=== PATIENT | female | born 1970 | race Caucasian/White ===

== ENCOUNTER 2016-10-21 17:18 | Emergency (ER) | payer BC ==
[2016-10-22 18:18] VITALS: Wt 74.8 kg
== END 2016-10-21 20:06 | disposition home or self-care (01) ==
LOC: D.ER 17:18
DX: Z20.3 Contact with and (suspected) exposure to rabies (principal); I10 Essential (primary) hypertension; K21.9 Gastro-esophageal reflux disease without esophagitis

== ENCOUNTER 2016-10-22 16:43 | Outpatient (CLI) | payer BC ==
[~2016-10-22] VITALS: Ht 162.6 cm; Wt 75.0 kg
[2016-10-22 18:18] VITALS: BP 153/92; Ht 162.6 cm; Wt 75.0 kg
== END 2016-10-22 19:00 | disposition home or self-care (01) ==
LOC: D.OPS 16:43
DX: Z23 Encounter for immunization (principal)

== ENCOUNTER 2016-10-24 13:21 | Outpatient (CLI) | payer BC ==
[2016-10-22 18:18] VITALS: BMI 28.4
== END 2016-10-24 13:56 | disposition home or self-care (01) ==
LOC: D.OPS 13:21 → D.MS 13:22 → D.OPS 13:56
DX: Z23 Encounter for immunization (principal)

== ENCOUNTER 2016-10-28 13:58 | Outpatient (CLI) | payer BC ==
[~2016-10-28] VITALS: Ht 162.6 cm; Wt 75.0 kg
[2016-10-28 14:46] VITALS: BP 144/95; Ht 162.6 cm; Wt 75.0 kg
== END 2016-10-28 15:19 | disposition home or self-care (01) ==
LOC: D.OPS 13:58
DX: Z23 Encounter for immunization (principal); Z20.3 Contact with and (suspected) exposure to rabies

== ENCOUNTER 2016-11-04 18:00 | Outpatient (CLI) | payer BC ==
[~2016-11-04] VITALS: Ht 162.6 cm; Wt 75.0 kg
[2016-11-04 20:35] VITALS: Ht 162.6 cm; Wt 75.0 kg
== END 2016-11-04 18:55 | disposition home or self-care (01) ==
LOC: D.OPS 18:00
DX: Z23 Encounter for immunization (principal); Z20.3 Contact with and (suspected) exposure to rabies

== ENCOUNTER 2018-11-24 08:00 | Outpatient (CLI) | payer BC ==
[2016-11-04 20:35] VITALS: BMI 28.4
== END 2018-11-24 23:59 | disposition home or self-care (01) ==
LOC: D.MAMMO 08:00
PROVIDERS: ATTEND Obstetrics & Gynecology
DX: Z12.31 Encounter for screening mammogram for malignant neoplasm of breast (principal)

== ENCOUNTER → 2019-01-16 14:00 | Outpatient (CLI) | payer BC ==
[2016-11-04 20:35] VITALS: BMI 28.4
== END | disposition home or self-care (01) ==
LOC: D.MAMMO 12-25 14:30 → D.US 12-25 15:30 → D.MAMMO 13:00
PROVIDERS: ATTEND Obstetrics & Gynecology
DX: N63.10 Unspecified lump in the right breast, unspecified quadrant (principal)